=== PATIENT | female | born 1960 | race Caucasian/White ===

== ENCOUNTER 2020-02-09 13:05 | Emergency (ER) | payer BC ==
[~2020-02-09] VITALS: Ht 160 cm; Wt 83.9 kg
--- NOTE | 2020-02-09 13:07 | NUR ---
FABIO from home with c/o midback pain of 10/10 s/p fall. -KO, pt unable to ambulate at this time. awaiting for MD santiago
--- NOTE | 2020-02-09 13:15 | NUR ---
at bedside for eval
[2020-02-09] MEDS ORDERED: HYDROCODONE/APAP 5/325MG TABLET ONE (13:28)
[2020-02-09] MEDS ORDERED: HYDROCODONE/APAP 5/325MG TABLET PO ONE (13:30)
--- NOTE | 2020-02-09 14:29 | NUR ---
md ryan at bedside
[2020-02-09 15:22] VITALS: BP 148/84
== END 2020-02-09 15:22 | disposition home or self-care (01) ==
LOC: ER 13:13
DX: S22.080A Wedge compression fracture of T11-T12 vertebra, initial encounter for closed fracture (principal); I10 Essential (primary) hypertension; F41.9 Anxiety disorder, unspecified; W01.0XXA Fall on same level from slipping, tripping and stumbling without subsequent striking against object, initial encounter; Y93.89 Activity, other specified; Y92.89 Other specified places as the place of occurrence of the external cause; Y99.8 Other external cause status
CPT/HCPCS: 72100-TC

== ENCOUNTER 2021-06-16 12:05 | Emergency (ER) | payer BC ==
[~2021-06-16] VITALS: Ht 165.1 cm; Wt 74.8 kg
[2021-06-16] MEDS ORDERED: SULF1TAB48 PO (12:24)
[2021-06-16] MEDS ORDERED: CLIN150C16 PO (12:24)
--- NOTE | 2021-06-16 12:25 | NUR ---
61 yrs female came from home accompany by gabriel c/o redness and painfully spoting on rt [place] seen by plan to got antibiotic
--- NOTE | 2021-06-16 12:30 | NUR ---
d/c home with rx skin warm maryse dry to touch
[2021-06-16 12:31] VITALS: BP 136/86
== END 2021-06-16 12:36 | disposition home or self-care (01) ==
LOC: ER 12:05
DX: L03.317 Cellulitis of buttock (principal); I10 Essential (primary) hypertension; F41.9 Anxiety disorder, unspecified